=== PATIENT | female | born 1955 | race Caucasian/White ===

== ENCOUNTER 2018-11-01 15:53 | Emergency (ER) | payer OTHER ==
[2018-11-01 16:02] VITALS: BMI 32.5
--- NOTE | 2018-11-01 16:18 | PDOC ---
Attending Attestation - HPI HPI: 11/01/18 17:34 The patient is a year old female, with no significant past medical history of Anxiety, cholecystectomy and hypothyroidism who presents to the emergency department with 2 days of left lower quadrant pain. The patient notes she has had 2 episodes of L lower quadrant pain that radiates to her groin and is associated with urgency, constipation, and chest pain. The patient describes the chest pain as feels like gas that is associated with SOB. The patient notes she takes Zantac with relief. The patient notes she has had a kidney stone before. The patient denies headache or dizziness. The patient denies fever, chills, nausea, vomit, or diarrhea. Allergies: NKDA Past surgical history: Cholecystectomy Social history: None reported PCP: Dr. Gabriel Mcrae - Physicial Exam PE: 11/01/18 17:35 GENERAL: Awake, alert, and fully oriented, in no acute distress HEAD: No signs of trauma EYES: PERRLA, EOMI, sclera anicteric, conjunctiva clear ENT: Auricles normal inspection, hearing grossly normal, nares patent, oropharynx clear without exudates. Moist mucosa NECK: Normal ROM, supple, no lymphadenopathy, JVD, or masses LUNGS: Breath sounds equal, clear to auscultation bilaterally. No wheezes, and no crackles HEART: Regular rate and rhythm, normal S1 and S2, no murmurs, rubs or gallops ABDOMEN: (+) Left CVA tenderness. (+) mild left lower quadrant pain. Soft, normoactive bowel sounds. No guarding, no rebound. No masses EXTREMITIES: Normal range of motion, no edema. No clubbing or cyanosis. No cords, erythema, or tenderness NEUROLOGICAL: Cranial nerves II through XII grossly intact. Normal speech, normal gait SKIN: Warm, Dry, normal turgor, no rashes or lesions noted. <Mauro Ho - Last Filed: 11/01/18 17:34> - Resident Resident Name: Brayan Holley - ED Attending Attestation I have performed the following: I have examined & evaluated the patient, The case was reviewed & discussed with the resident, I agree w/resident's findings & plan, Exceptions are as noted - Medical Decision Making 11/01/18 16:18 I, Dr. Sailaja Rain, DO, attest that this document has been prepared under my direction and personally reviewed by me in its entirety. I further attest, that it accurately reflects all work, treatment, procedures and medical decision -making performed by me. 11/01/18 17:55 a/p: 63yo female with LLQ and L cva pain -hx of renal stones in the past - follows with a urologist -pt c/o urinary freq and urgency, no dysuria, has had hematuria in the past, but denies today -no n/v/d, no constipation -has had intermittent cp x 4 weeks that improves with zantac -will send labs, ct renal study, ua -ekg -will give tylenol for pain -pt resting comfortably at this time in nad 11/01/18 18:20 labs reviewed blood in urine concerning for a kidney stone ct pending 11/01/18 19:30 ct does not show acute kidney stone blood and small amount of whites in the urine given urinary freq and urgency will treat poss uti will start keflex - stable for dc to home and follow up with urology <Sailaja Rain - Last Filed: 11/01/18 19:31> Heart Score/ECG Review - ECG Intrepretation Comment:: 11/01/18 17:59 sinus at 64, nl axis, nl interval, t wave inversions III which are nonspecific, no acute st changes <Sailaja Rain - Last Filed: 11/01/18 19:31> Attestations - Attestations 11/01/18 17:35 Documentation prepared by Mauro Ho, acting as medical sales for Sailaja Rain DO, MD <Mauro Ho - Last Filed: 11/01/18 17:34>
[2018-11-01] MEDS ORDERED: ACETAMINOPHEN 1000 MG/100 ML VIAL (NON FORMULARY) IVPB ONE (16:35)
[2018-11-01] MEDS ORDERED: SODIUM CHLORIDE 1,000 ML IV STA (16:35)
[2018-11-01] MEDS ORDERED: ACETAMINOPHEN INJECTION 100 ML IVPB ONE (16:40)
[2018-11-01 16:57] LABS: BASO % 0.8 % (0-2.0); EOS % 3.8 % (0-4.5); HEMATOCRIT 40.8 % (32.4-45.2); HEMOGLOBIN 14.4 GM/dL (10.7-15.3); LYMPH % 39.2 % (8-40); MCH 32.3 pg (25.7-33.7); MCHC 35.2 g/dl (32.0-36.0); MEAN CELL VOLUME 91.8 fl (80-96); MEAN PLT VOLUME 8.2 fl (7.5-11.1); MONO % 6.4 % (3.8-10.2); NEUT % 49.8 % (42.8-82.8); PLATELET COUNT 295 K/MM3 (134-434); RBC 4.45 M/mm3 (3.60-5.2); RDW 12.9 % (11.6-15.6); WHITE BLOOD COUNT 7.9 K/mm3 (4.0-10.0)
[2018-11-01 17:03] LABS: URINE APPEARANCE CLEAR; URINE BILIRUBIN NEGATIVE (<2.0 mg/dL); URINE COLOR LTYELLOW; URINE GLUCOSE (UA) NEGATIVE (NEGATIVE); URINE KETONE NEGATIVE (NEGATIVE); URINE LEUK ESTERASE 1+ (NEGATIVE); URINE NITRITE NEGATIVE (NEGATIVE); URINE PROTEIN NEGATIVE (NEGATIVE); URINE UROBILINOGEN NEGATIVE mg/dL (0.2-1.0)
[2018-11-01 17:04] LABS: EPI CELLS RARE /HPF (FEW); URINE MUCUS RARE
--- NOTE | 2018-11-01 17:09 | PDOC ---
History of Present Illness - General Chief Complaint: Pain Stated Complaint: APPENDIX PAIN Time Seen by Provider: 11/01/18 16:14 History Source: Patient Exam Limitations: No Limitations - History of Present Illness Initial Comments: 11/01/18 16:59 Patient is a 63F with history of cholecystectomy and hypothyroidism here today complaining of LLQ pain that started two days ago. Patient endorses two episodes of sudden onset of LLQ pain radiating to her groin. The pain resolves after a few hours and she does not have the full pain at this time. Denies hematuria, endorses dysuria. Denies fevers, chills, vomiting, endorses nausea. Last bowel movement yesterday. No chest pain, shortness of breath, leg swelling. Past History - Past Medical History Allergies/Adverse Reactions: Allergies Allergy/AdvReac Type Severity Reaction Status Date / Time No Known Allergies Allergy Verified 11/01/18 16:02 Home Medications: Ambulatory Orders Cephalexin Monohydrate [Keflex -] 500 mg PO BID #14 capsule 11/01/18 COPD: No Psychiatric Problems: Yes (ANXIETY) Thyroid Disease: Yes - Surgical History Cholecystectomy: Yes - Suicide/Smoking/Psychosocial Hx Smoking History: Never smoked Review of Systems - Review of Systems Able to Perform ROS?: Yes Comments:: 11/01/18 17:12 GENERAL/CONSTITUTIONAL: No fever or chills. No weakness. HEAD, EYES, EARS, NOSE AND THROAT: No change in vision. No sore throat. CARDIOVASCULAR: No chest pain or shortness of breath RESPIRATORY: No cough, wheezing, or hemoptysis. GASTROINTESTINAL: +nausea, no vomiting, diarrhea or constipation. GENITOURINARY: +dysuria, no frequency, or change in urination. MUSCULOSKELETAL: No joint or muscle swelling or pain. No neck or back pain. SKIN: No rash NEUROLOGIC: No headache, vertigo, loss of consciousness, or change in strength/ sensation. ENDOCRINE: No increased thirst. No abnormal weight change HEMATOLOGIC/LYMPHATIC: No anemia, easy bleeding, or history of blood clots. ALLERGIC/IMMUNOLOGIC: No hives or skin allergy. *Physical Exam - Vital Signs Last Vital Signs Temp Pulse Resp BP Pulse Ox 98.1 F 69 18 153/90 98 11/01/18 15:56 11/01/18 15:56 11/01/18 15:56 11/01/18 15:56 11/01/18 15:56 - Physical Exam Comments: 11/01/18 17:13 GENERAL: Awake, alert, and fully oriented, in no acute distress HEAD: No signs of trauma, normocephalic, atraumatic EYES: PERRLA, EOMI, sclera anicteric, conjunctiva clear ENT: Auricles normal inspection, hearing grossly normal, nares patent, oropharynx clear without exudates. Moist mucosa NECK: Normal ROM, supple, no lymphadenopathy, JVD, or masses LUNGS: No distress, speaks full sentences, clear to auscultation bilaterally HEART: Regular rate and rhythm, normal S1 and S2, no murmurs, rubs or gallops, peripheral pulses normal and equal bilaterally. ABDOMEN: Soft, mild LLQ, L cva pain EXTREMITIES: Normal inspection, Normal range of motion, no edema. No clubbing or cyanosis. NEUROLOGICAL: Cranial nerves II through XII grossly intact. Normal speech, normal gait, no focal sensorimotor deficits SKIN: Warm, Dry, normal turgor, no rashes or lesions noted. Moderate Sedation - Procedure Monitoring Vital Signs: Procedure Monitoring Vital Signs Temperature 98.1 F 11/01/18 15:56 Pulse Rate 69 11/01/18 15:56 Respiratory Rate 18 11/01/18 15:56 Blood Pressure 153/90 11/01/18 15:56 O2 Sat by Pulse Oximetry (%) 98 11/01/18 15:56 ED Treatment Course - LABORATORY CBC & Chemistry Diagram: 11/01/18 16:38 11/01/18 16:38 - RADIOLOGY Radiology Studies Ordered: Category Date Time Status ABDOMEN CT WITH CONTRAST* [CT] Stat CT Scan 11/01/18 16:37 Ordered - Medications Given in the ED: ED Medications Discontinued Medications Generic Name Dose Route Start Last Admin Trade Name Freq PRN Reason Stop Dose Admin Acetaminophen 1,000 mg 11/01/18 16:35 11/01/18 16:50 Ofirmev Injection - IVPB 11/01/18 16:36 1,000 mg ONCE ONE Administration Medical Decision Making - Medical Decision Making 11/01/18 17:13 Patient is 63F with history of cholecystectomy, hypothyroidism, kidney stones here today with llq pain consistent with kidney stones. Vitals normal and stable. DDx includes, but is not limited to: uti, kidney stone, diverticulitis. Patient reports to attending intermittent chest pain and shortness of breath over the past three weeks. Will do abdominal labs and trop. 11/01/18 19:30 CBC, CMP normal. Trop negative. UA shows 1+ LE, 4 WBCs, will treat given dysuria and L CVA CT shows no acute process. Patient advised of results. 11/01/18 19:34 Pain is improved. Will discharge with keflex. *DC/Admit/Observation/Transfer Diagnosis at time of Disposition: UTI (urinary tract infection) - Discharge Dispostion Disposition: HOME Condition at time of disposition: Good Decision to Admit order: No - Referrals Referrals: Gabriel Mcrae MD [Primary Care Provider] - Faraz Armas MD [Staff Physician] - - Patient Instructions Printed Discharge Instructions: DI for Urinary Tract Infection (UTI) Additional Instructions: Please follow up with your urologist this week. Please see the credit underwriter below for your shortness of breath. Please return if you have any new, worsening or concerning symptoms, especially fever, increasing pain and shortness of breath. - Post Discharge Activity
[2018-11-01 17:16] LABS: INR 1.07 (0.83-1.09); PROTHROMBIN TIME (PATIENT) 12.6 SEC (9.7-13.0)
[2018-11-01 17:34] LABS: ALBUMIN 4.2 g/dl (3.4-5.0); ALK PHOS 89 U/L (45-117); ANION GAP 6 MMOL/L (8-16); BILIRUBIN,TOTAL 0.4 mg/dL (0.2-1); BLOOD UREA NITROGEN 15 mg/dL (7-18); CHLORIDE 103 mmol/L (98-107); CO2 30 mmol/L (21-32); CREATININE 0.6 mg/dL (0.55-1.3); GLUCOSE,RANDOM 86 mg/dL (74-106); LIPASE 58 U/L (73-393); POTASSIUM 4.1 mmol/L (3.5-5.1); SGOT/AST 13 U/L (15-37); SGPT/ALT 19 U/L (13-61); SODIUM 139 mmol/L (136-145); TOT PROT 7.9 g/dl (6.4-8.2)
[2018-11-01] MEDS ORDERED: CEPHALEXIN MONOHYDRATE 500 MG CAPSULE (UD) PO ONE (19:36)
[2018-11-01] MEDS ORDERED: CEPHALEXIN MONOHYDRATE 500 MG CAPSULE (UD) ONE (20:03)
[2018-11-01 20:14] VITALS: BP 141/81; PULSE 68; TEMP 97.9
--- NOTE | 2018-11-02 16:56 | EKG ---
Test Reason : Blood Pressure : / mmHG Vent. Rate : 064 BPM Atrial Rate : 064 BPM P-R Int : 158 ms QRS Dur : 090 ms QT Int : 406 ms P-R-T Axes : -14 019 010 degrees QTc Int : 418 ms NORMAL SINUS RHYTHM NORMAL ECG NO PREVIOUS ECGS AVAILABLE Confirmed by GLENNA HOLLAND MD ([id number]) on 11/02/2018 4:56:14 PM Referred By: Confirmed By:GLENNA HOLLAND MD
== END 2018-11-01 20:14 | disposition home or self-care (01) ==
LOC: JER 15:53
PROC: 3E0337Z Introduction of Electrolytic and Water Balance Substance into Peripheral Vein, Percutaneous Approach (ICD-10-PCS; principal; 2018-11-01)
DX: N39.0 Urinary tract infection, site not specified (principal)
CPT/HCPCS: 36415; 74176-TC; 80053; 81003; 81015; 83690; 84484; 85025; 85610; 87086; 93005; 93010; 96360; 99283-25; J0131; J7030

== ENCOUNTER 2019-03-21 12:06 | Emergency (ER) | payer OTHER ==
[2019-03-21 12:17] VITALS: BMI 32.8
[2019-03-21] MEDS ORDERED: ACETAMINOPHEN 1000 MG/100 ML VIAL (NON FORMULARY) IVPB ONE (13:17)
[2019-03-21 13:24] LABS: EPI CELLS 1.8 /HPF (0-5/HPF); HYALINE CASTS 1 /lpf (0-8); URINE APPEARANCE CLEAR; URINE BACTERIA 70.6 /hpf (NEGATIVE); URINE BILIRUBIN NEGATIVE (NEGATIVE); URINE COLOR YELLOW; URINE GLUCOSE (UA) NEGATIVE (NEGATIVE); URINE KETONE TRACE (NEGATIVE); URINE LEUK ESTERASE 1+ (NEGATIVE); URINE NITRITE NEGATIVE (NEGATIVE); URINE PROTEIN NEGATIVE (NEGATIVE); URINE RBC 4 /hpf (0-4); URINE UROBILINOGEN 0.2 mg/dL (0.2-1.0); URINE WBC 4 /hpf (0-5)
[2019-03-21] MEDS ORDERED: ACETAMINOPHEN INJECTION 100 ML IVPB ONE (13:24)
[2019-03-21 13:39] LABS: BASO % 0.7 % (0-2.0); HEMATOCRIT 40.2 % (32.4-45.2); HEMOGLOBIN 13.7 GM/dL (10.7-15.3); LYMPH % 17.2 % (8-40); MCH 30.7 pg (25.7-33.7); MEAN CELL VOLUME 90.3 fl (80-96); MEAN PLT VOLUME 7.8 fl (7.5-11.1); MONO % 4.7 % (3.8-10.2); NEUT % 75.4 % (42.8-82.8); PLATELET COUNT 285 K/MM3 (134-434); RBC 4.45 M/mm3 (3.60-5.2); WHITE BLOOD COUNT 6.7 K/mm3 (4.0-10.0)
[2019-03-21 14:06] LABS: BILIRUBIN,TOTAL 0.3 mg/dL (0.2-1); BLOOD UREA NITROGEN 11.6 mg/dL (7-18); CALCIUM 8.9 mg/dL (8.5-10.1); CREATININE 0.7 mg/dL (0.55-1.3); POTASSIUM 4.4 mmol/L (3.5-5.1); TOT PROT 7.7 g/dl (6.4-8.2)
--- NOTE | 2019-03-21 15:29 | PDOC ---
Documentation entered by Keturah Nash SCRIBE, acting as scribe for Divina Callejas MD. Divina Callejas MD: This documentation has been prepared by the Saad daly Brenda, SCRIBE, under my direction and personally reviewed by me in its entirety. I confirm that the documentation accurately reflects all work, treatment, procedures, and medical decision making performed by me. History of Present Illness - General Chief Complaint: Pain, Acute Stated Complaint: ABD. PAIN Time Seen by Provider: 03/21/19 13:05 History Source: Patient Exam Limitations: No Limitations - History of Present Illness Initial Comments: 03/21/19 14:12 The patient is a 63 year old female, with a significant PMH of hypothyroidism and anxiety who presents to the emergency department with lower left abdominal pain since this morning. The patient reports feeling an onset of lower left quadrant pain since 9:00am, which she describes as waxing, waning ranging from 8 /10 in severity to 10/10, with decreased PO intake. The patient reports feeling of incomplete emptying bladder. Patient notes having a similar episode 6 months ago, at which time she was brought into [facility]. Patient is currently unaware of fevers. The patient denies chest pain, shortness of breath, headache and dizziness. Denies chills, vomiting, diarrhea and constipation. Denies dysuria and hematuria. Denies any other symptoms. Allergies: NKA Past surgical history: cholecystectomy Social history: Not reported PCP: Dr. Gabriel Mcrae Past History - Past Medical History Allergies/Adverse Reactions: Allergies Allergy/AdvReac Type Severity Reaction Status Date / Time No Known Allergies Allergy Verified 03/21/19 12:41 Home Medications: Ambulatory Orders Naproxen [Naprosyn] 500 mg PO PRN PRN 03/21/19 COPD: No Psychiatric Problems: Yes (ANXIETY) Thyroid Disease: Yes - Surgical History Cholecystectomy: Yes - Immunization History Immunization Up to Date: No - Suicide/Smoking/Psychosocial Hx Smoking History: Never smoked Have you smoked in the past 12 months: No Information on smoking cessation initiated: No Hx Alcohol Use: No Drug/Substance Use Hx: No Review of Systems - Review of Systems Able to Perform ROS?: Yes Comments:: 03/21/19 14:13 GENERAL/CONSTITUTIONAL: No fever or chills. No weakness. HEAD, EYES, EARS, NOSE AND THROAT: No change in vision. No ear pain or discharge. No sore throat. CARDIOVASCULAR: No chest pain or shortness of breath. RESPIRATORY: No cough, wheezing, or hemoptysis. GASTROINTESTINAL:+ Abdominal pain. No vomiting, diarrhea or constipation. GENITOURINARY: No dysuria, frequency, or change in urination. MUSCULOSKELETAL: No joint or muscle swelling or pain. No neck pain. SKIN: No rash NEUROLOGIC: No headache, vertigo, loss of consciousness, or change in strength/ sensation. ENDOCRINE: No increased thirst. No abnormal weight change. HEMATOLOGIC/LYMPHATIC: No anemia, easy bleeding, or history of blood clots. ALLERGIC/IMMUNOLOGIC: No hives or skin allergy. *Physical Exam - Vital Signs Last Vital Signs Temp Pulse Resp BP Pulse Ox 98.2 F 70 16 163/93 99 03/21/19 12:15 03/21/19 12:15 03/21/19 12:15 03/21/19 12:15 03/21/19 12:15 - Physical Exam Comments: 03/21/19 14:13 GENERAL: The patient is in no acute distress. HEAD: Normal with no signs of trauma. EYES: PERRLA, EOMI, sclera anicteric, conjunctiva clear. ENT: Ears normal, nares patent, oropharynx clear without exudates. Moist mucous membranes. NECK: Normal range of motion, supple without lymphadenopathy, JVD, or masses. LUNGS: Breath sounds equal, clear to auscultation bilaterally. No wheezes, and no crackles. HEART:Regular rate and rhythm, normal S1 and S2 without murmur, rub or gallop. ABDOMEN: +Left lower quadrant tenderness. Soft, normoactive bowel sounds. No guarding, no rebound. No masses palpable. EXTREMITIES: Normal range of motion, no edema. No clubbing or cyanosis. No erythema, or tenderness. NEUROLOGICAL: Cranial nerves II through XII grossly intact. Normal speech. No focal neurological deficits. MUSCULOSKELETAL: No CVA tenderness SKIN: Warm, Dry, normal turgor, no rashes or lesions noted. ED Treatment Course - LABORATORY CBC & Chemistry Diagram: 03/21/19 13:19 03/21/19 13:19 - ADDITIONAL ORDERS Additional order review: Laboratory Results 03/21/19 13:10 Urine Color Yellow Urine Appearance Clear Urine pH 7.0 Ur Specific [place] 1.016 Urine Protein Negative Urine Glucose (UA) Negative Urine Ketones Trace H Urine Blood Negative Urine Nitrite Negative Urine Bilirubin Negative Urine Urobilinogen 0.2 Ur Leukocyte Esterase 1+ H Urine WBC (Auto) 4 Urine RBC (Auto) 4 Urine Casts (Auto) 1 U Epithel Cells (Auto) 1.8 Urine Bacteria (Auto) 70.6 - RADIOLOGY Radiology Studies Ordered: Category Date Time Status ABDOMEN & PELVIS CT WITH CONTR [CT] Stat CT Scan 03/21/19 13:12 Ordered Medical Decision Making - Medical Decision Making 03/21/19 13:46 Ms Fox is a 63 yo f presenting to the ER with a complaint of severe LLQ pain No fevers or chills No diarrhea No urinary symptoms 6 months ago, she had something similar but it resolved within 2 days No trauma No dietary changes 03/21/19 15:27 DD: Diverticulitis, renal colic, colitis, hernia, SBO Will do: Labs CT abd and pelvis Tylenol for pain Re Assess 03/21/19 18:36 Laboratory Tests 03/21/19 03/21/19 03/21/19 13:10 13:19 13:19 WBC 6.7 Hgb 13.7 Hct 40.2 Plt Count 285 BUN 11.6 Creatinine 0.7 Lipase 47 L Urine Blood Negative Urine Nitrite Negative Ur Leukocyte Esterase 1+ H Urine WBC (Auto) 4 Urine RBC (Auto) 4 CT demonstrated intussusception, bilateral fat containing inguinal hernias Case reviewed with Dr Cottrell Pt seen in the ER Pt states she feels much better Dr Cottrell recommends repeat CT This has demonstrated resolution of intussusception Pt discharged to home Follow up with PMD *DC/Admit/Observation/Transfer Diagnosis at time of Disposition: Intussusception intestine Abdominal pain Qualifiers: Abdominal location: unspecified location Qualified Code(s): R10.9 - Unspecified abdominal pain - Discharge Dispostion Disposition: HOME Condition at time of disposition: Stable Decision to Admit order: No - Referrals Referrals: Gabriel Mcrae MD [Primary Care Provider] - Alexandr Byrnes MD [Staff Physician] - - Patient Instructions Printed Discharge Instructions: DI for Intussusception, DI for Abdominal Pain- Adult Additional Instructions: Ms Fox Thank you for coming in to the ER today Please review your CT findings Please be sure to follow up with your primary care physician and gastroenterology Return to the ER for any other concerns or complaints - Post Discharge Activity
--- NOTE | 2019-03-21 19:33 | CONSULT ---
Consult Consult Specialty:: General Surgery Reason for Consultation:: intussucetion J-J on CT - History of Present Illness Chief Complaint: abdominal pain History of Present Illness: 63 yo female PMH hypothyroidism, anxiety, s/p cholecystectomy who presents to the emergency department with lower left abdominal pain since this morning. The patient reports feeling an onset of lower left quadrant pain since 9:00am, which she describes as waxing, waning ranging from 8/10 in severity to 10/10, with decreased PO intake. The patient reports feeling of incomplete emptying bladder. Patient notes having a similar episode 6 months ago, at which time she was brought into [facility]. CT scan of the abdomen with PO and IV contrast showed 2.3cm Jej-Jej intussuception. - History Source History Provided By: Patient, Medical Record Limitations to Obtaining History: No Limitations - Past Medical History Gastrointestinal: Yes: Constipation Psych: Yes: Anxiety Endocrine: Yes: Hypothyroidism - Past Surgical History Past Surgical History: Yes: Cholecystectomy (upper midline ([place] - Alcohol/Substance Use Hx Alcohol Use: No - Smoking History Smoking history: Never smoked Have you smoked in the past 12 months: No Home Medications - Allergies Allergies/Adverse Reactions: Allergies Allergy/AdvReac Type Severity Reaction Status Date / Time No Known Allergies Allergy Verified 03/21/19 12:41 - Home Medications Home Medications: Ambulatory Orders Naproxen [Naprosyn] 500 mg PO PRN PRN 03/21/19 Review of Systems - Review of Systems Constitutional: denies: Chills, Fever Eyes: denies: Blind Spots, Recent Change in Vision HENT: denies: Difficult Swallowing, Throat Pain Neck: denies: Decreased ROM, Tenderness Cardiovascular: denies: Chest Pain, Palpitations Respiratory: denies: Cough, SOB Gastrointestinal: reports: Abdominal Pain, Constipation. denies: Diarrhea Genitourinary: denies: Flank Pain, Lesions, Pain Breasts: reports: No Symptoms Reported. denies: Pain Musculoskeletal: denies: Joint Swelling, Muscle Pain Integumentary: denies: Pallor, Pruritis, Rash Neurological: denies: Seizure, Syncope Endocrine: denies: Unexplained Weight Gain, Unexplained Weight Loss Hematology/Lymphatic: denies: Easily Bruised, Excessive Bleeding Psychiatric: reports: Anxiety. denies: Depression Physical Exam Vital Signs: Vital Signs Temperature 98.2 F 03/21/19 16:47 Pulse Rate 68 07/17/19 16:47 Respiratory Rate 18 03/21/19 16:47 Blood Pressure 133/67 03/21/19 16:47 O2 Sat by Pulse Oximetry (%) 98 03/21/19 16:47 Constitutional: Yes: Well Nourished, No Distress, Calm, Obese Eyes: Yes: Conjunctiva Clear, EOM Intact HENT: Yes: Atraumatic, Normocephalic Neck: Yes: Supple, Trachea Midline Cardiovascular: Yes: Regular Rate and Rhythm, S1, S2 Respiratory: Yes: Regular, CTA Bilaterally Gastrointestinal: Yes: Normal Bowel Sounds, Soft, Abdomen, Obese. No: Tenderness, Tenderness, Rebound, Vomiting ...Rectal Exam: No: Deferred Renal/: No: CVA Tenderness - Left Musculoskeletal: No: Muscle Pain, Muscle Weakness Extremities: No: Cool, Cyanosis Wound/Incision: Yes: Clean/Dry, Well Approximated, Other (healed upper midline) Neurological: Yes: Alert, Oriented Psychiatric: Yes: Alert, Oriented Labs: CBC, BMP 03/21/19 13:19 03/21/19 13:19 Imaging - Results Cat Scan: Report Reviewed, Image Reviewed (original showed Jej-Jej intussucception in RUQ but had resolved by second scan) Problem List - Problems (1) Intussusception intestine Assessment/Plan: 63yo female with hypothrodism presented with a transient Jej-kalee intussuception resolved by second CTscan Counseled to limit large quantity of vegetable meals No acute surgical intervention of followup is needed Thank you for the opportunity to participate in the care of this patient. Code(s): K56.1 - INTUSSUSCEPTION (2) Abdominal pain in female patient Code(s): R10.9 - UNSPECIFIED ABDOMINAL PAIN (3) Over weight Code(s): E66.3 - OVERWEIGHT
[2019-03-21 19:35] VITALS: BP 119/83; PULSE 64; TEMP 98.3
== END 2019-03-21 19:29 | disposition home or self-care (01) ==
LOC: JER 12:06
PROC: 3E033NZ Introduction of Analgesics, Hypnotics, Sedatives into Peripheral Vein, Percutaneous Approach (ICD-10-PCS; principal; 2019-03-21)
DX: K56.1 Intussusception (principal); R10.9 Unspecified abdominal pain
CPT/HCPCS: 36415; 74176-TC; 74177-TC; 80053; 81003; 82150; 83690; 85025; 87077; 87086; 96374; 99284-25; J0131; Q9967

== ENCOUNTER 2021-02-14 10:38 | Emergency (ER) | payer OTHER ==
[2021-02-14 10:47] VITALS: BP 155/87; PULSE 72; TEMP 98; BMI 32.2
[2021-02-14] MEDS ORDERED: KETOROLAC TROMETHAMINE 30 MG/1 ML VIAL IM ONE (11:20)
[2021-02-14] MEDS ORDERED: KETOROLAC TROMETHAMINE 30 MG/1 ML VIAL ONE (11:27)
== END 2021-02-14 11:44 | disposition home or self-care (01) ==
LOC: JERFT 10:38
PROC: 3E0233Z Introduction of Anti-inflammatory into Muscle, Percutaneous Approach (ICD-10-PCS; principal; 2021-02-14)
DX: K08.89 Other specified disorders of teeth and supporting structures (principal)
CPT/HCPCS: 99284-25